=== PATIENT | male | born 1965 | race Caucasian/White ===

== ENCOUNTER 2017-09-11 15:17 | Emergency (ER) | payer OTHER ==
[~2017-09-11] VITALS: Ht 188 cm; Wt 98.6 kg
[2017-09-11 15:58] LABS: HEMATOCRIT 45.3 % (39.2-51.8); HEMOGLOBIN 15.8 g/dL (13.7-18.0)
[2017-09-11] MEDS ORDERED: ASPIRIN 81 MG TABLET CHEW PO ONE (16:00)
[2017-09-11] MEDS ORDERED: SODIUM CHLORIDE FLUSH 10ML SYR IVF ONE (16:00)
[2017-09-11 16:01] LABS: ASPARTATE AMINO TRANSFERASE 20 U/L (15-37); BLOOD UREA NITROGEN 18 mg/dL (7-18)
[2017-09-11 16:06] LABS: IS PT STATUS REG ER OR PRE ER? YES
[2017-09-11] MEDS ORDERED: OMEP-110 PO (16:33)
[2017-09-11] MEDS ORDERED: METO25TA2 PO (16:33)
[2017-09-11] MEDS ORDERED: ASPIRIN 81 MG TABLET CHEW ONE (17:07)
[2017-09-11 18:10] VITALS: BP 130/48
== END 2017-09-11 18:12 | disposition home or self-care (01) ==
LOC: ED 17:20
DX: R07.89 Other chest pain (principal); I10 Essential (primary) hypertension
CPT/HCPCS: 36415; 71020; 80053; 83735; 84443; 84484; 85025; 85379; 93005; 99285

== ENCOUNTER 2018-11-27 17:02 | Inpatient (IN) | payer OTHER ==
[~2018-11-27] VITALS: Ht 188 cm; Wt 100.5 kg
[~2018-11-27 17:02] MED LIST: METO25TA2 PO; OMEP-110 PO
--- NOTE | 2018-11-27 17:56 | NUR ---
PATIENT WAITING FOR US. UPDATED ON PLAN OF CARE.
[2018-11-27 18:10] LABS: ALBUMIN 3.3 g/dL (3.4-5.0); ANION GAP 3 mmol/L (5-15); CALCIUM 8.5 mg/dL (8.5-10.1); CHLORIDE 109 mmol/L (98-107); CREATININE 1.14 mg/dL (0.7-1.3)
[2018-11-27 18:15] LABS: BASOPHILS # (AUTO) 0.03 x10^3/uL (0-0.1); BASOPHILS % (AUTO) 1 % (0-1); EOSINOPHILS # (AUTO) 0.18 x10^3/uL (0-0.4); EOSINOPHILS % (AUTO) 3 % (1-7); LYMPHOCYTES # (AUTO) 1.23 x10^3/uL (1-3.4); LYMPHOCYTES % (AUTO) 21 % (22-44); MD NO; MEAN CORPUSCULAR HGB CONC 34.8 g/dL (33.2-36.2); MEAN CORPUSCULAR VOLUME 97.8 fL (81-97); MEAN PLATELET VOLUME 7.3 fL (7.4-10.4); MONOCYTES % (AUTO) 10 % (2-9); NEUTROPHILS # (AUTO) 3.83 x10^3/uL (1.8-6.8); NEUTROPHILS % (AUTO) 65 % (42-75); PLATELET COUNT 310 x10^3/uL (130-400); RED BLOOD COUNT 4.48 x10^6/uL (4.38-5.82); RED CELL DISTRIBUTION WIDTH 12.6 % (9.4-14.8)
[2018-11-27 18:19] LABS: ALANINE AMINOTRANSFERASE 26 U/L (12-78); ALKALINE PHOSPHATASE 61 U/L (45-117); BILIRUBIN,TOTAL 0.3 mg/dL (0.2-1.0)
[2018-11-27] MEDS ORDERED: SODIUM CHLORIDE FLUSH 10ML SYR IVF ONE (18:30)
[2018-11-27] MEDS ORDERED: DOXYCYCLINE 100 MG in DEXTROSE 5% 250 ML IV ONE (18:39)
--- NOTE | 2018-11-27 18:45 | NUR ---
PATIENT UPDATED IN PLAN OF CARE, AWAITING US RESULTS
--- NOTE | 2018-11-27 18:51 | NUR ---
MEDS ORDERED FROM PHARM. PATIENT TAKEN TO US
[2018-11-27] MEDS ORDERED: METH10CP PO (19:15)
[2018-11-27] MEDS ORDERED: LEVO750T26 PO (19:17)
[2018-11-27] MEDS ORDERED: PARO10TA56 PO (19:17)
[2018-11-27] MEDS ORDERED: ACYC-113 PO (19:17)
[2018-11-27] MEDS ORDERED: SEPTRA DS BID (19:17)
--- NOTE | 2018-11-27 19:56 | NUR ---
REPORT TO LUKAS OVIEDO
[2018-11-27 20:00] VITALS: BP 118/79
[2018-11-27] MEDS ORDERED: MEROPENEM 1 GM in SODIUM CHLORIDE 0.9% 100 ML IV ONE (20:30)
[2018-11-27] MEDS ORDERED: ACETAMINOPHEN 325 MG TABLET PO PRN (20:30)
[2018-11-27] MEDS ORDERED: VANCOMYCIN PER PHARMACY MC PRN (20:30)
[2018-11-27] MEDS ORDERED: POLYETHYLENE GLYCOL 17 GM PACKET PO PRN (20:30)
[2018-11-27] MEDS ORDERED: BISACODYL 10 MG SUPP PR PRN (20:30)
[2018-11-27] MEDS ORDERED: ONDANSETRON ODT 4 MG PO PRN (20:30)
[2018-11-27] MEDS: HEPARIN 5,000 UNITS/ML, 1ML SQ SCH (20:52)
[2018-11-27] MEDS ORDERED: PHARMACOKINETIC CONSULTATION MC ONE (21:00)
[2018-11-27] MEDS ORDERED: PHARMACOKINETIC MONITORING MC PRN (21:00)
[2018-11-27] MEDS: SODIUM CHLORIDE FLUSH 10ML SYR IVF SCH (21:00)
[2018-11-27 21:07] LABS: FOLATE LEVEL 6.5 ng/mL (3.1-17.5)
[2018-11-27] MEDS: ACYCLOVIR 200 MG CAPSULE PO SCH (21:44)
[2018-11-27] MEDS: VANCOMYCIN 2,000 MG in SODIUM CHLORIDE 0.9% 500 ML IV SCH (21:44)
[2018-11-28 00:13] VITALS: BP 117/76
[2018-11-28] MEDS: HEPARIN 5,000 UNITS/ML, 1ML SQ SCH ×3 (04:20→19:48)
[2018-11-28] MEDS: ACYCLOVIR 200 MG CAPSULE PO SCH ×2 (04:20→19:47)
[2018-11-28 05:23] LABS: CALCIUM 8.2 mg/dL (8.5-10.1); CHLORIDE 112 mmol/L (98-107)
[2018-11-28 05:25] LABS: BASOPHILS # (AUTO) 0.03 x10^3/uL (0-0.1); BASOPHILS % (AUTO) 1 % (0-1); EOSINOPHILS # (AUTO) 0.13 x10^3/uL (0-0.4); EOSINOPHILS % (AUTO) 3 % (1-7); LYMPHOCYTES # (AUTO) 1.37 x10^3/uL (1-3.4); LYMPHOCYTES % (AUTO) 30 % (22-44); MD NO; MEAN CORPUSCULAR HEMOGLOBIN 34.1 pg (27.5-34.5); MEAN CORPUSCULAR HGB CONC 34.7 g/dL (33.2-36.2); MEAN CORPUSCULAR VOLUME 98.2 fL (81-97); MEAN PLATELET VOLUME 7.4 fL (7.4-10.4); MONOCYTES # (AUTO) 0.42 x10^3/uL (0.2-0.8); MONOCYTES % (AUTO) 9 % (2-9); NEUTROPHILS # (AUTO) 2.67 x10^3/uL (1.8-6.8); NEUTROPHILS % (AUTO) 58 % (42-75); PLATELET COUNT 244 x10^3/uL (130-400); RED BLOOD COUNT 4.16 x10^6/uL (4.38-5.82); RED CELL DISTRIBUTION WIDTH 12.8 % (9.4-14.8)
[2018-11-28 05:29] LABS: ALANINE AMINOTRANSFERASE 23 U/L (12-78); ALBUMIN 2.8 g/dL (3.4-5.0); ALKALINE PHOSPHATASE 50 U/L (45-117); ANION GAP 3 mmol/L (5-15); BILIRUBIN,TOTAL 0.4 mg/dL (0.2-1.0); CREATININE 1.18 mg/dL (0.7-1.3); TOTAL PROTEIN 6.1 g/dL (6.4-8.2)
[2018-11-28 07:29] VITALS: BP 128/85
[2018-11-28] MEDS: PAROXETINE 10 MG TABLET PO SCH (07:35)
[2018-11-28] MEDS: KETOROLAC 30 MG/1 ML IV PRN ×2 (07:35→19:50)
[2018-11-28] MEDS: SENNA/DOCUSATE TABLET PO SCH (07:35)
[2018-11-28] MEDS: OMEPRAZOLE 20 MG CAPSULE.DR PO SCH (07:35)
[2018-11-28] MEDS: FOLIC ACID 1 MG TABLET PO SCH (07:35)
[2018-11-28] MEDS: METHYLPHENIDATE 10 MG TABLET PO SCH (07:36)
[2018-11-28] MEDS: SODIUM CHLORIDE FLUSH 10ML SYR IVF SCH ×2 (07:37→20:54)
[2018-11-28] MEDS: VANCOMYCIN 2,000 MG in SODIUM CHLORIDE 0.9% 500 ML IV SCH ×2 (09:24→20:52)
[2018-11-28 13:08] VITALS: BP 141/83
[2018-11-28 19:28] VITALS: BP 139/88
[2018-11-29 01:18] VITALS: BP 129/83
[2018-11-29] MEDS: HEPARIN 5,000 UNITS/ML, 1ML SQ SCH ×3 (04:26→20:58)
[2018-11-29 07:23] VITALS: BP 133/86
[2018-11-29] MEDS: SENNA/DOCUSATE TABLET PO SCH (07:52)
[2018-11-29] MEDS: METHYLPHENIDATE 10 MG TABLET PO SCH (07:52)
[2018-11-29] MEDS: OMEPRAZOLE 20 MG CAPSULE.DR PO SCH (07:52)
[2018-11-29] MEDS: SODIUM CHLORIDE FLUSH 10ML SYR IVF SCH ×2 (07:53→20:59)
[2018-11-29] MEDS: FOLIC ACID 1 MG TABLET PO SCH (07:53)
[2018-11-29] MEDS: PAROXETINE 10 MG TABLET PO SCH (07:53)
[2018-11-29] MEDS: KETOROLAC 30 MG/1 ML IV PRN (08:01)
[2018-11-29] MEDS: VANCOMYCIN 2,000 MG in SODIUM CHLORIDE 0.9% 500 ML IV SCH ×2 (09:23→20:59)
[2018-11-29 13:10] VITALS: BP 126/82
[2018-11-29 19:29] VITALS: BP 132/82
[2018-11-29] MEDS: ACYCLOVIR 200 MG CAPSULE PO SCH (20:58)
[2018-11-30 02:07] VITALS: BP 137/88
[2018-11-30] MEDS: KETOROLAC 30 MG/1 ML IV PRN (04:14)
[2018-11-30] MEDS: HEPARIN 5,000 UNITS/ML, 1ML SQ SCH (04:14)
[2018-11-30] MEDS: VANCOMYCIN 2,000 MG in SODIUM CHLORIDE 0.9% 500 ML IV SCH (09:01)
[2018-11-30] MEDS: OMEPRAZOLE 20 MG CAPSULE.DR PO SCH (09:01)
[2018-11-30] MEDS: METHYLPHENIDATE 10 MG TABLET PO SCH (09:01)
[2018-11-30] MEDS: FOLIC ACID 1 MG TABLET PO SCH (09:01)
[2018-11-30] MEDS: SENNA/DOCUSATE TABLET PO SCH (09:01)
[2018-11-30] MEDS: SODIUM CHLORIDE FLUSH 10ML SYR IVF SCH (09:02)
[2018-11-30] MEDS: PAROXETINE 10 MG TABLET PO SCH (09:02)
[2018-11-30 09:22] VITALS: BP 138/86
== END 2018-11-30 13:15 | disposition home or self-care (01) | DRG 603 ==
LOC: ED 19:55 → 4NOR 20:15 → DCLOUNGE 11-30 13:11
PROVIDERS: ADMIT Internal Medicine; ATTEND Internal Medicine
DX: L03.115 Cellulitis of right lower limb (principal); E44.1 Mild protein-calorie malnutrition; K21.9 Gastro-esophageal reflux disease without esophagitis; F32.9 Major depressive disorder, single episode, unspecified; D75.89 Other specified diseases of blood and blood-forming organs; G89.29 Other chronic pain; F98.8 Other specified behavioral and emotional disorders with onset usually occurring in childhood and adolescence; Z68.28 Body mass index [BMI] 28.0-28.9, adult
CPT/HCPCS: 36415; 80053; 80202; 82607; 82746; 85025; 87040; 96374; 96375; 99285; G0378; J1644; J1885; J2185; J3370; J7060; J7040